=== PATIENT | male | born 1950 | race Caucasian/White ===

== ENCOUNTER 2021-08-13 16:11 | Outpatient (CLI) | payer MEDICARE | END 2021-08-13 16:12 | disposition home or self-care (01) | LOC: CSHWCC 16:11 | PROVIDERS: ATTEND Nurse Practitioner Family | DX: E11.621 Type 2 diabetes mellitus with foot ulcer (principal); L97.416 Non-pressure chronic ulcer of right heel and midfoot with bone involvement without evidence of necrosis | CPT/HCPCS: 82962; 97139; G0277; 36416 ==

== ENCOUNTER 2021-08-14 10:44 | Outpatient (CLI) | payer MEDICARE | END 2021-08-14 10:45 | disposition home or self-care (01) | LOC: CSHWCC 10:44 | PROVIDERS: ATTEND Nurse Practitioner Family | DX: E11.621 Type 2 diabetes mellitus with foot ulcer (principal); L97.416 Non-pressure chronic ulcer of right heel and midfoot with bone involvement without evidence of necrosis | CPT/HCPCS: 36416; G0277 ==

== ENCOUNTER 2021-08-17 15:40 | Outpatient (CLI) | payer MEDICARE | END 2021-08-17 15:41 | disposition home or self-care (01) | LOC: CSHWCC 15:40 | PROVIDERS: ATTEND Nurse Practitioner Family | DX: E11.621 Type 2 diabetes mellitus with foot ulcer (principal); L97.416 Non-pressure chronic ulcer of right heel and midfoot with bone involvement without evidence of necrosis | CPT/HCPCS: 36416; G0277 ==

== ENCOUNTER 2021-08-18 13:42 | Outpatient (CLI) | payer MEDICARE | END 2021-08-18 13:43 | disposition home or self-care (01) | LOC: CSHWCC 13:42 | PROVIDERS: ATTEND Nurse Practitioner Family | DX: E11.621 Type 2 diabetes mellitus with foot ulcer (principal); L97.416 Non-pressure chronic ulcer of right heel and midfoot with bone involvement without evidence of necrosis | CPT/HCPCS: 36416; G0277 ==

== ENCOUNTER 2021-08-19 12:48 | Outpatient (CLI) | payer MEDICARE | END 2021-08-19 12:49 | disposition home or self-care (01) | LOC: CSHWCC 12:48 | PROVIDERS: ATTEND Nurse Practitioner Family | DX: E11.621 Type 2 diabetes mellitus with foot ulcer (principal); L97.416 Non-pressure chronic ulcer of right heel and midfoot with bone involvement without evidence of necrosis | CPT/HCPCS: 82962; 97139; G0277; 36416 ==

== ENCOUNTER 2021-08-20 13:06 | Outpatient (CLI) | payer MEDICARE | END 2021-08-20 13:07 | disposition home or self-care (01) | LOC: CSHWCC 13:06 | PROVIDERS: ATTEND Nurse Practitioner Family | DX: E11.621 Type 2 diabetes mellitus with foot ulcer (principal); L97.416 Non-pressure chronic ulcer of right heel and midfoot with bone involvement without evidence of necrosis | CPT/HCPCS: 11042; 36416; 87070; 87205; 97605; G0277 ==

== ENCOUNTER 2021-08-21 12:37 | Outpatient (CLI) | payer MEDICARE | END 2021-08-21 12:38 | disposition home or self-care (01) | LOC: CSHWCC 12:37 | PROVIDERS: ATTEND Nurse Practitioner Family | DX: E11.621 Type 2 diabetes mellitus with foot ulcer (principal); L97.416 Non-pressure chronic ulcer of right heel and midfoot with bone involvement without evidence of necrosis | CPT/HCPCS: 36416; G0277 ==

== ENCOUNTER 2021-08-24 13:42 | Outpatient (CLI) | payer MEDICARE | END 2021-08-24 13:43 | disposition home or self-care (01) | LOC: CSHWCC 13:42 | PROVIDERS: ATTEND Nurse Practitioner Family | DX: E11.621 Type 2 diabetes mellitus with foot ulcer (principal); L97.416 Non-pressure chronic ulcer of right heel and midfoot with bone involvement without evidence of necrosis | CPT/HCPCS: 36416; 97605; G0277 ==

== ENCOUNTER 2021-08-25 12:00 | Outpatient (CLI) | payer MEDICARE | END 2021-08-25 12:01 | disposition home or self-care (01) | LOC: CSHWCC 12:00 | PROVIDERS: ATTEND Nurse Practitioner Family | DX: E11.621 Type 2 diabetes mellitus with foot ulcer (principal); L97.416 Non-pressure chronic ulcer of right heel and midfoot with bone involvement without evidence of necrosis | CPT/HCPCS: 97139; G0277; 36416 ==

== ENCOUNTER 2021-08-26 15:17 | Outpatient (CLI) | payer MEDICARE | END 2021-08-26 15:18 | disposition home or self-care (01) | LOC: CSHWCC 15:17 | PROVIDERS: ATTEND Nurse Practitioner Family | DX: E11.621 Type 2 diabetes mellitus with foot ulcer (principal); L97.416 Non-pressure chronic ulcer of right heel and midfoot with bone involvement without evidence of necrosis | CPT/HCPCS: 82962; 97139; G0277; 36416 ==

== ENCOUNTER 2021-08-27 13:02 | Outpatient (CLI) | payer MEDICARE | END 2021-08-27 13:03 | disposition home or self-care (01) | LOC: CSHWCC 13:02 | PROVIDERS: ATTEND Nurse Practitioner Family | DX: E11.621 Type 2 diabetes mellitus with foot ulcer (principal); L97.416 Non-pressure chronic ulcer of right heel and midfoot with bone involvement without evidence of necrosis | CPT/HCPCS: 36416 ==

== ENCOUNTER 2021-08-28 10:06 | Outpatient (CLI) | payer MEDICARE | END 2021-08-28 10:07 | disposition home or self-care (01) | LOC: CSHWCC 10:06 | PROVIDERS: ATTEND Nurse Practitioner Family | DX: E11.621 Type 2 diabetes mellitus with foot ulcer (principal); L97.416 Non-pressure chronic ulcer of right heel and midfoot with bone involvement without evidence of necrosis | CPT/HCPCS: 36416; G0277 ==

== ENCOUNTER 2021-08-31 12:14 | Outpatient (CLI) | payer MEDICARE | END 2021-08-31 12:15 | disposition home or self-care (01) | LOC: CSHWCC 12:14 | PROVIDERS: ATTEND Nurse Practitioner Family | DX: E11.621 Type 2 diabetes mellitus with foot ulcer (principal); L97.416 Non-pressure chronic ulcer of right heel and midfoot with bone involvement without evidence of necrosis | CPT/HCPCS: 11042; 82962; 97139; G0277; 36416 ==

== ENCOUNTER 2021-09-02 13:59 | Outpatient (CLI) | payer MEDICARE | END 2021-09-02 14:00 | disposition home or self-care (01) | LOC: CSHWCC 13:59 | PROVIDERS: ATTEND Nurse Practitioner Family | DX: E11.621 Type 2 diabetes mellitus with foot ulcer (principal); L97.416 Non-pressure chronic ulcer of right heel and midfoot with bone involvement without evidence of necrosis | CPT/HCPCS: 36416; G0277 ==

== ENCOUNTER 2021-09-04 11:17 | Outpatient (CLI) | payer MEDICARE | END 2021-09-04 11:18 | disposition home or self-care (01) | LOC: CSHWCC 11:17 | PROVIDERS: ATTEND Nurse Practitioner Family | DX: E11.621 Type 2 diabetes mellitus with foot ulcer (principal); L97.416 Non-pressure chronic ulcer of right heel and midfoot with bone involvement without evidence of necrosis; I10 Essential (primary) hypertension | CPT/HCPCS: 36416 ==

== ENCOUNTER 2021-09-07 09:23 | Outpatient (CLI) | payer MEDICARE | END 2021-09-07 09:24 | disposition home or self-care (01) | LOC: CSHWCC 09:23 | PROVIDERS: ATTEND Nurse Practitioner Family | DX: E11.621 Type 2 diabetes mellitus with foot ulcer (principal); L97.416 Non-pressure chronic ulcer of right heel and midfoot with bone involvement without evidence of necrosis | CPT/HCPCS: 36416; 97605; G0277 ==

== ENCOUNTER 2021-09-08 10:10 | Outpatient (CLI) | payer MEDICARE | END 2021-09-08 10:11 | disposition home or self-care (01) | LOC: CSHWCC 10:10 | PROVIDERS: ATTEND Nurse Practitioner Family | DX: E11.621 Type 2 diabetes mellitus with foot ulcer (principal); L97.416 Non-pressure chronic ulcer of right heel and midfoot with bone involvement without evidence of necrosis | CPT/HCPCS: 97139; G0277; 36416 ==

== ENCOUNTER 2021-09-09 15:14 | Outpatient (CLI) | payer MEDICARE | END 2021-09-09 15:15 | disposition home or self-care (01) | LOC: CSHWCC 15:14 | PROVIDERS: ATTEND Nurse Practitioner Family | DX: E11.621 Type 2 diabetes mellitus with foot ulcer (principal); L97.416 Non-pressure chronic ulcer of right heel and midfoot with bone involvement without evidence of necrosis | CPT/HCPCS: 36416 ==

== ENCOUNTER 2021-09-10 15:20 | Outpatient (CLI) | payer MEDICARE | END 2021-09-10 15:21 | disposition home or self-care (01) | LOC: CSHWCC 15:20 | PROVIDERS: ATTEND Nurse Practitioner Family | DX: E11.621 Type 2 diabetes mellitus with foot ulcer (principal); L97.416 Non-pressure chronic ulcer of right heel and midfoot with bone involvement without evidence of necrosis | CPT/HCPCS: 36416 ==

== ENCOUNTER 2021-09-11 10:56 | Outpatient (CLI) | payer MEDICARE | END 2021-09-11 10:57 | disposition home or self-care (01) | LOC: CSHWCC 10:56 | PROVIDERS: ATTEND Nurse Practitioner Family | DX: E11.621 Type 2 diabetes mellitus with foot ulcer (principal); L97.416 Non-pressure chronic ulcer of right heel and midfoot with bone involvement without evidence of necrosis | CPT/HCPCS: 36416; G0277 ==

== ENCOUNTER 2021-09-14 08:21 | Outpatient (CLI) | payer MEDICARE | END 2021-09-14 08:22 | disposition home or self-care (01) | LOC: CSHWCC 08:21 | PROVIDERS: ATTEND Nurse Practitioner Family | DX: E11.621 Type 2 diabetes mellitus with foot ulcer (principal); L97.416 Non-pressure chronic ulcer of right heel and midfoot with bone involvement without evidence of necrosis; I10 Essential (primary) hypertension | CPT/HCPCS: 36416; 97605; G0277 ==

== ENCOUNTER 2021-09-17 08:52 | Outpatient (CLI) | payer MEDICARE | END 2021-09-17 08:53 | disposition home or self-care (01) | LOC: CSHWCC 08:52 | PROVIDERS: ATTEND Nurse Practitioner Family | DX: E11.621 Type 2 diabetes mellitus with foot ulcer (principal); L97.416 Non-pressure chronic ulcer of right heel and midfoot with bone involvement without evidence of necrosis | CPT/HCPCS: 15271; 97139; 97605; Q4133 ==

== ENCOUNTER 2021-09-22 08:12 | Outpatient (CLI) | payer MEDICARE | END 2021-09-22 08:13 | disposition home or self-care (01) | LOC: CSHWCC 08:12 | PROVIDERS: ATTEND Nurse Practitioner Family | DX: E11.621 Type 2 diabetes mellitus with foot ulcer (principal); L97.416 Non-pressure chronic ulcer of right heel and midfoot with bone involvement without evidence of necrosis | CPT/HCPCS: 97605 ==

== ENCOUNTER 2021-09-25 11:17 | Outpatient (CLI) | payer MEDICARE | END 2021-09-25 11:18 | disposition home or self-care (01) | LOC: CSHWCC 11:17 | PROVIDERS: ATTEND Nurse Practitioner Family | DX: E11.621 Type 2 diabetes mellitus with foot ulcer (principal); L97.416 Non-pressure chronic ulcer of right heel and midfoot with bone involvement without evidence of necrosis | CPT/HCPCS: 15275; 97139; G0463; Q4133; 99212 ==

== ENCOUNTER 2021-09-28 09:38 | Outpatient (CLI) | payer MEDICARE | END 2021-09-28 09:39 | disposition home or self-care (01) | LOC: CSHWCC 09:38 | PROVIDERS: ATTEND Nurse Practitioner Family | DX: E11.621 Type 2 diabetes mellitus with foot ulcer (principal); L97.416 Non-pressure chronic ulcer of right heel and midfoot with bone involvement without evidence of necrosis | CPT/HCPCS: 36416; G0277 ==

== ENCOUNTER 2021-09-29 15:10 | Outpatient (CLI) | payer MEDICARE | END 2021-09-29 15:11 | disposition home or self-care (01) | LOC: CSHWCC 15:10 | PROVIDERS: ATTEND Nurse Practitioner Family | DX: E11.621 Type 2 diabetes mellitus with foot ulcer (principal); L97.416 Non-pressure chronic ulcer of right heel and midfoot with bone involvement without evidence of necrosis | CPT/HCPCS: 82962; 97139; G0277; G0463; 36416; 99212 ==

== ENCOUNTER 2021-09-30 13:01 | Outpatient (CLI) | payer MEDICARE | END 2021-09-30 13:02 | disposition home or self-care (01) | LOC: CSHWCC 13:01 | PROVIDERS: ATTEND Nurse Practitioner Family | DX: E11.621 Type 2 diabetes mellitus with foot ulcer (principal); L97.416 Non-pressure chronic ulcer of right heel and midfoot with bone involvement without evidence of necrosis | CPT/HCPCS: 82962; 97139; G0277; 36416 ==

== ENCOUNTER 2021-10-01 14:14 | Outpatient (CLI) | payer MEDICARE | END 2021-10-01 14:15 | disposition home or self-care (01) | LOC: CSHWCC 14:14 | PROVIDERS: ATTEND Nurse Practitioner Family | DX: E11.621 Type 2 diabetes mellitus with foot ulcer (principal); L97.416 Non-pressure chronic ulcer of right heel and midfoot with bone involvement without evidence of necrosis | CPT/HCPCS: 82962; 97139; G0277; 36416 ==

== ENCOUNTER 2021-10-02 10:47 | Outpatient (CLI) | payer MEDICARE | END 2021-10-02 10:48 | disposition home or self-care (01) | LOC: CSHWCC 10:47 | PROVIDERS: ATTEND Nurse Practitioner Family | DX: E11.621 Type 2 diabetes mellitus with foot ulcer (principal); L97.416 Non-pressure chronic ulcer of right heel and midfoot with bone involvement without evidence of necrosis | CPT/HCPCS: 15275; 82962; 97139; G0277; Q4133; 36416 ==

== ENCOUNTER 2021-10-05 08:07 | Outpatient (CLI) | payer MEDICARE | END 2021-10-05 08:08 | disposition home or self-care (01) | LOC: CSHWCC 08:07 | PROVIDERS: ATTEND Nurse Practitioner Family | DX: E11.621 Type 2 diabetes mellitus with foot ulcer (principal); L97.416 Non-pressure chronic ulcer of right heel and midfoot with bone involvement without evidence of necrosis | CPT/HCPCS: 82962; 97139; G0277; 36416 ==

== ENCOUNTER 2021-10-06 11:41 | Outpatient (CLI) | payer MEDICARE | END 2021-10-06 11:42 | disposition home or self-care (01) | LOC: CSHWCC 11:41 | PROVIDERS: ATTEND Nurse Practitioner Family | DX: E11.621 Type 2 diabetes mellitus with foot ulcer (principal); L97.416 Non-pressure chronic ulcer of right heel and midfoot with bone involvement without evidence of necrosis | CPT/HCPCS: 97139; G0463; 99213 ==

== ENCOUNTER 2021-10-07 13:59 | Outpatient (CLI) | payer MEDICARE | END 2021-10-07 14:00 | disposition home or self-care (01) | LOC: CSHWCC 13:59 | PROVIDERS: ATTEND Nurse Practitioner Family | DX: E11.621 Type 2 diabetes mellitus with foot ulcer (principal); L97.416 Non-pressure chronic ulcer of right heel and midfoot with bone involvement without evidence of necrosis | CPT/HCPCS: 36416; G0277 ==

== ENCOUNTER 2021-10-08 08:23 | Outpatient (CLI) | payer MEDICARE | END 2021-10-08 08:24 | disposition home or self-care (01) | LOC: CSHWCC 08:23 | PROVIDERS: ATTEND Nurse Practitioner Family | DX: E11.621 Type 2 diabetes mellitus with foot ulcer (principal); L97.416 Non-pressure chronic ulcer of right heel and midfoot with bone involvement without evidence of necrosis | CPT/HCPCS: 82962; 97139; G0277; 36416 ==

== ENCOUNTER 2021-10-09 10:21 | Outpatient (CLI) | payer MEDICARE | END 2021-10-09 10:22 | disposition home or self-care (01) | LOC: CSHWCC 10:21 | PROVIDERS: ATTEND Nurse Practitioner Family | DX: E11.621 Type 2 diabetes mellitus with foot ulcer (principal); L97.416 Non-pressure chronic ulcer of right heel and midfoot with bone involvement without evidence of necrosis; M86.671 Other chronic osteomyelitis, right ankle and foot | CPT/HCPCS: 82962; 97139; G0277; G0463; 36416; 99213 ==

== ENCOUNTER 2021-10-12 10:58 | Outpatient (CLI) | payer MEDICARE | END 2021-10-12 10:59 | disposition home or self-care (01) | LOC: CSHWCC 10:58 | PROVIDERS: ATTEND Nurse Practitioner Family | DX: E11.621 Type 2 diabetes mellitus with foot ulcer (principal); M86.671 Other chronic osteomyelitis, right ankle and foot; L97.416 Non-pressure chronic ulcer of right heel and midfoot with bone involvement without evidence of necrosis | CPT/HCPCS: 36416; G0277 ==

== ENCOUNTER 2021-10-13 10:36 | Outpatient (CLI) | payer MEDICARE | END 2021-10-13 10:37 | disposition home or self-care (01) | LOC: CSHWCC 10:36 | PROVIDERS: ATTEND Nurse Practitioner Family | DX: E11.621 Type 2 diabetes mellitus with foot ulcer (principal); L97.416 Non-pressure chronic ulcer of right heel and midfoot with bone involvement without evidence of necrosis; M86.671 Other chronic osteomyelitis, right ankle and foot; I10 Essential (primary) hypertension | CPT/HCPCS: 82962; 97139; 97605; G0277; 36416 ==

== ENCOUNTER 2021-10-16 09:52 | Outpatient (CLI) | payer MEDICARE | END 2021-10-16 09:53 | disposition home or self-care (01) | LOC: CSHWCC 09:52 | PROVIDERS: ATTEND Nurse Practitioner Family | DX: E11.621 Type 2 diabetes mellitus with foot ulcer (principal); L97.416 Non-pressure chronic ulcer of right heel and midfoot with bone involvement without evidence of necrosis; M86.671 Other chronic osteomyelitis, right ankle and foot ==

== ENCOUNTER 2021-10-21 11:56 | Outpatient (CLI) | payer MEDICARE | END 2021-10-21 11:57 | disposition home or self-care (01) | LOC: CSHWCC 11:56 | PROVIDERS: ATTEND Nurse Practitioner Family | DX: E11.621 Type 2 diabetes mellitus with foot ulcer (principal); L97.416 Non-pressure chronic ulcer of right heel and midfoot with bone involvement without evidence of necrosis | CPT/HCPCS: 97605 ==

== ENCOUNTER 2021-10-23 10:59 | Outpatient (CLI) | payer MEDICARE | END 2021-10-23 11:00 | disposition home or self-care (01) | LOC: CSHWCC 10:59 | PROVIDERS: ATTEND Nurse Practitioner Family | DX: E11.621 Type 2 diabetes mellitus with foot ulcer (principal); L97.416 Non-pressure chronic ulcer of right heel and midfoot with bone involvement without evidence of necrosis | CPT/HCPCS: 29581; 97605 ==

== ENCOUNTER 2021-10-27 09:50 | Outpatient (CLI) | payer MEDICARE | END 2021-10-27 09:51 | disposition home or self-care (01) | LOC: CSHWCC 09:50 | PROVIDERS: ATTEND Nurse Practitioner Family | DX: E11.621 Type 2 diabetes mellitus with foot ulcer (principal); L97.416 Non-pressure chronic ulcer of right heel and midfoot with bone involvement without evidence of necrosis; R60.0 Localized edema ==

== ENCOUNTER → 2021-10-30 | Outpatient (CLI) | payer MEDICARE | LOC: CSHWCC 16:26 | PROVIDERS: ATTEND Nurse Practitioner Family | DX: E11.621 Type 2 diabetes mellitus with foot ulcer (principal); L97.416 Non-pressure chronic ulcer of right heel and midfoot with bone involvement without evidence of necrosis; R60.0 Localized edema | CPT/HCPCS: 29581; 97605 ==

== ENCOUNTER 2021-11-03 15:18 | Outpatient (CLI) | payer MEDICARE | END 2021-11-03 15:19 | disposition home or self-care (01) | LOC: CSHWCC 15:18 | PROVIDERS: ATTEND Nurse Practitioner Family | DX: E11.621 Type 2 diabetes mellitus with foot ulcer (principal); L97.416 Non-pressure chronic ulcer of right heel and midfoot with bone involvement without evidence of necrosis; R60.0 Localized edema ==

== ENCOUNTER 2021-11-06 11:57 | Outpatient (CLI) | payer MEDICARE | END 2021-11-06 11:58 | disposition home or self-care (01) | LOC: CSHWCC 11:57 | PROVIDERS: ATTEND Nurse Practitioner Family | DX: E11.621 Type 2 diabetes mellitus with foot ulcer (principal); L97.416 Non-pressure chronic ulcer of right heel and midfoot with bone involvement without evidence of necrosis; R60.0 Localized edema ==

== ENCOUNTER 2021-11-10 14:27 | Outpatient (CLI) | payer MEDICARE | END 2021-11-10 14:28 | disposition home or self-care (01) | LOC: CSHWCC 14:27 | PROVIDERS: ATTEND Nurse Practitioner Family | DX: E11.621 Type 2 diabetes mellitus with foot ulcer (principal); L97.416 Non-pressure chronic ulcer of right heel and midfoot with bone involvement without evidence of necrosis; R60.0 Localized edema ==

== ENCOUNTER 2021-11-13 11:26 | Outpatient (CLI) | payer MEDICARE | END 2021-11-13 11:27 | disposition home or self-care (01) | LOC: CSHWCC 11:26 | PROVIDERS: ATTEND Nurse Practitioner Family | DX: E11.621 Type 2 diabetes mellitus with foot ulcer (principal); L97.416 Non-pressure chronic ulcer of right heel and midfoot with bone involvement without evidence of necrosis; R60.0 Localized edema | CPT/HCPCS: 29581; 97605 ==

== ENCOUNTER 2021-11-17 13:05 | Outpatient (CLI) | payer MEDICARE | END 2021-11-17 13:06 | disposition home or self-care (01) | LOC: CSHWCC 13:05 | PROVIDERS: ATTEND Nurse Practitioner Family | DX: E11.621 Type 2 diabetes mellitus with foot ulcer (principal); L97.416 Non-pressure chronic ulcer of right heel and midfoot with bone involvement without evidence of necrosis; R60.0 Localized edema ==

== ENCOUNTER 2021-11-20 10:19 | Outpatient (CLI) | payer MEDICARE | END 2021-11-20 10:20 | disposition home or self-care (01) | LOC: CSHWCC 10:19 | PROVIDERS: ATTEND Nurse Practitioner Family | DX: E11.621 Type 2 diabetes mellitus with foot ulcer (principal); L97.416 Non-pressure chronic ulcer of right heel and midfoot with bone involvement without evidence of necrosis; R60.0 Localized edema | CPT/HCPCS: 29581; 97605 ==

== ENCOUNTER 2021-11-24 12:55 | Outpatient (CLI) | payer MEDICARE | END 2021-11-24 12:56 | disposition home or self-care (01) | LOC: CSHWCC 12:55 | PROVIDERS: ATTEND Nurse Practitioner Family | DX: E11.621 Type 2 diabetes mellitus with foot ulcer (principal); L97.416 Non-pressure chronic ulcer of right heel and midfoot with bone involvement without evidence of necrosis; R60.0 Localized edema ==

== ENCOUNTER 2021-11-27 09:43 | Outpatient (CLI) | payer MEDICARE | END 2021-11-27 09:44 | disposition home or self-care (01) | LOC: CSHWCC 09:43 | PROVIDERS: ATTEND Nurse Practitioner Family | DX: L89.313 Pressure ulcer of right buttock, stage 3 (principal); E11.621 Type 2 diabetes mellitus with foot ulcer; L97.416 Non-pressure chronic ulcer of right heel and midfoot with bone involvement without evidence of necrosis; R60.0 Localized edema ==

== ENCOUNTER 2021-12-01 15:03 | Outpatient (CLI) | payer MEDICARE | END 2021-12-01 15:04 | disposition home or self-care (01) | LOC: CSHWCC 15:03 | PROVIDERS: ATTEND Nurse Practitioner Family | DX: L89.313 Pressure ulcer of right buttock, stage 3 (principal); E11.621 Type 2 diabetes mellitus with foot ulcer; L97.416 Non-pressure chronic ulcer of right heel and midfoot with bone involvement without evidence of necrosis; R60.0 Localized edema | CPT/HCPCS: 29581 ==

== ENCOUNTER 2021-12-04 10:47 | Outpatient (CLI) | payer MEDICARE | END 2021-12-04 10:48 | disposition home or self-care (01) | LOC: CSHWCC 10:47 | PROVIDERS: ATTEND Nurse Practitioner Family | DX: E11.621 Type 2 diabetes mellitus with foot ulcer (principal); L97.416 Non-pressure chronic ulcer of right heel and midfoot with bone involvement without evidence of necrosis; R60.0 Localized edema | CPT/HCPCS: 29581 ==

== ENCOUNTER 2021-12-08 14:26 | Outpatient (CLI) | payer MEDICARE | END 2021-12-08 14:27 | disposition home or self-care (01) | LOC: CSHWCC 14:26 | PROVIDERS: ATTEND Nurse Practitioner Family | DX: E11.621 Type 2 diabetes mellitus with foot ulcer (principal); L97.416 Non-pressure chronic ulcer of right heel and midfoot with bone involvement without evidence of necrosis; R60.0 Localized edema ==

== ENCOUNTER 2021-12-19 12:34 | Outpatient (CLI) | payer MEDICARE | END 2021-12-19 12:35 | disposition home or self-care (01) | LOC: CSHRAD 12:34 | PROVIDERS: ATTEND Preventive Medicine Undersea and Hyperbaric Medicine | DX: M86.671 Other chronic osteomyelitis, right ankle and foot (principal); M85.871 Other specified disorders of bone density and structure, right ankle and foot; M79.89 Other specified soft tissue disorders ==

== ENCOUNTER 2021-12-21 11:57 | Outpatient (CLI) | payer MEDICARE | END 2021-12-21 11:58 | disposition home or self-care (01) | LOC: CSHWCC 11:57 | PROVIDERS: ATTEND Preventive Medicine Undersea and Hyperbaric Medicine | DX: E11.621 Type 2 diabetes mellitus with foot ulcer (principal); L97.416 Non-pressure chronic ulcer of right heel and midfoot with bone involvement without evidence of necrosis | CPT/HCPCS: 29581 ==

== ENCOUNTER 2021-12-25 08:04 | Outpatient (CLI) | payer MEDICARE | END 2021-12-25 08:05 | disposition home or self-care (01) | LOC: CSHWCC 08:04 | PROVIDERS: ATTEND Nurse Practitioner Family | DX: E11.621 Type 2 diabetes mellitus with foot ulcer (principal); L97.416 Non-pressure chronic ulcer of right heel and midfoot with bone involvement without evidence of necrosis; R60.0 Localized edema | CPT/HCPCS: 29581; 97139; G0463; 99212 ==

== ENCOUNTER 2021-12-29 12:51 | Outpatient (CLI) | payer MEDICARE | END 2021-12-29 12:52 | disposition home or self-care (01) | LOC: CSHWCC 12:51 | PROVIDERS: ATTEND Preventive Medicine Undersea and Hyperbaric Medicine | DX: E11.621 Type 2 diabetes mellitus with foot ulcer (principal); L97.416 Non-pressure chronic ulcer of right heel and midfoot with bone involvement without evidence of necrosis; R60.0 Localized edema | CPT/HCPCS: 29445; 29581; 99212; G0463 ==

== ENCOUNTER 2021-12-30 08:29 | Outpatient (CLI) | payer MEDICARE | END 2021-12-30 08:30 | disposition home or self-care (01) | LOC: CSHWCC 08:29 | PROVIDERS: ATTEND Preventive Medicine Undersea and Hyperbaric Medicine | DX: E11.621 Type 2 diabetes mellitus with foot ulcer (principal); L97.416 Non-pressure chronic ulcer of right heel and midfoot with bone involvement without evidence of necrosis; R60.0 Localized edema | CPT/HCPCS: 82962; 97139; G0277; 36416 ==

== ENCOUNTER 2021-12-31 11:05 | Outpatient (CLI) | payer MEDICARE | END 2021-12-31 11:06 | disposition home or self-care (01) | LOC: CSHWCC 11:05 | PROVIDERS: ATTEND Preventive Medicine Undersea and Hyperbaric Medicine | DX: M86.671 Other chronic osteomyelitis, right ankle and foot (principal) | CPT/HCPCS: 82962; 97139; G0277; 36416 ==

== ENCOUNTER 2022-01-01 08:12 | Outpatient (CLI) | payer MEDICARE | END 2022-01-01 08:13 | disposition home or self-care (01) | LOC: CSHWCC 08:12 | PROVIDERS: ATTEND Preventive Medicine Undersea and Hyperbaric Medicine | DX: E11.621 Type 2 diabetes mellitus with foot ulcer (principal); L97.416 Non-pressure chronic ulcer of right heel and midfoot with bone involvement without evidence of necrosis; R60.0 Localized edema | CPT/HCPCS: 36416; G0277 ==

== ENCOUNTER 2022-01-05 13:48 | Outpatient (CLI) | payer MEDICARE | END 2022-01-05 13:49 | disposition home or self-care (01) | LOC: CSHWCC 13:48 | PROVIDERS: ATTEND Preventive Medicine Undersea and Hyperbaric Medicine | DX: E11.621 Type 2 diabetes mellitus with foot ulcer (principal); L97.416 Non-pressure chronic ulcer of right heel and midfoot with bone involvement without evidence of necrosis; R60.0 Localized edema | CPT/HCPCS: 36416; G0277 ==

== ENCOUNTER 2022-01-06 08:11 | Outpatient (CLI) | payer MEDICARE | END 2022-01-06 08:12 | disposition home or self-care (01) | LOC: CSHWCC 08:11 | PROVIDERS: ATTEND Nurse Practitioner Family | DX: M86.671 Other chronic osteomyelitis, right ankle and foot (principal) | CPT/HCPCS: 97139; G0277; 36416 ==

== ENCOUNTER 2022-01-07 08:08 | Outpatient (CLI) | payer MEDICARE | END 2022-01-07 08:09 | disposition home or self-care (01) | LOC: CSHWCC 08:08 | PROVIDERS: ATTEND Preventive Medicine Undersea and Hyperbaric Medicine | DX: M86.671 Other chronic osteomyelitis, right ankle and foot (principal) | CPT/HCPCS: 36416 ==

== ENCOUNTER 2022-01-08 08:07 | Outpatient (CLI) | payer MEDICARE | END 2022-01-08 08:08 | disposition home or self-care (01) | LOC: CSHWCC 08:07 | PROVIDERS: ATTEND Nurse Practitioner Family | DX: M86.671 Other chronic osteomyelitis, right ankle and foot (principal) | CPT/HCPCS: 36416; G0277 ==

== ENCOUNTER 2022-01-12 08:26 | Outpatient (CLI) | payer MEDICARE | END 2022-01-12 08:27 | disposition home or self-care (01) | LOC: CSHWCC 08:26 | PROVIDERS: ATTEND Preventive Medicine Undersea and Hyperbaric Medicine | DX: M86.671 Other chronic osteomyelitis, right ankle and foot (principal) | CPT/HCPCS: 36416; G0277 ==

== ENCOUNTER 2022-01-13 08:07 | Outpatient (CLI) | payer MEDICARE | END 2022-01-13 08:08 | disposition home or self-care (01) | LOC: CSHWCC 08:07 | PROVIDERS: ATTEND Preventive Medicine Undersea and Hyperbaric Medicine | DX: E11.621 Type 2 diabetes mellitus with foot ulcer (principal); L97.416 Non-pressure chronic ulcer of right heel and midfoot with bone involvement without evidence of necrosis; M86.671 Other chronic osteomyelitis, right ankle and foot | CPT/HCPCS: 36416; G0277 ==

== ENCOUNTER 2022-01-14 08:08 | Outpatient (CLI) | payer MEDICARE | END 2022-01-14 08:09 | disposition home or self-care (01) | LOC: CSHWCC 08:08 | PROVIDERS: ATTEND Preventive Medicine Undersea and Hyperbaric Medicine | DX: E11.621 Type 2 diabetes mellitus with foot ulcer (principal); L97.416 Non-pressure chronic ulcer of right heel and midfoot with bone involvement without evidence of necrosis; R60.0 Localized edema | CPT/HCPCS: 36416 ==

== ENCOUNTER 2022-01-15 11:27 | Outpatient (CLI) | payer MEDICARE | END 2022-01-15 11:28 | disposition home or self-care (01) | LOC: CSHWCC 11:27 | PROVIDERS: ATTEND Preventive Medicine Undersea and Hyperbaric Medicine | DX: E11.621 Type 2 diabetes mellitus with foot ulcer (principal); L97.416 Non-pressure chronic ulcer of right heel and midfoot with bone involvement without evidence of necrosis | CPT/HCPCS: 36416 ==

== ENCOUNTER 2022-01-18 08:21 | Outpatient (CLI) | payer MEDICARE | END 2022-01-18 08:22 | disposition home or self-care (01) | LOC: CSHWCC 08:21 | PROVIDERS: ATTEND Preventive Medicine Undersea and Hyperbaric Medicine | DX: E11.621 Type 2 diabetes mellitus with foot ulcer (principal); L97.416 Non-pressure chronic ulcer of right heel and midfoot with bone involvement without evidence of necrosis | CPT/HCPCS: 36416; G0277 ==

== ENCOUNTER 2022-01-19 08:25 | Outpatient (CLI) | payer MEDICARE | END 2022-01-19 08:26 | disposition home or self-care (01) | LOC: CSHWCC 08:25 | PROVIDERS: ATTEND Preventive Medicine Undersea and Hyperbaric Medicine | DX: E11.621 Type 2 diabetes mellitus with foot ulcer (principal); L97.416 Non-pressure chronic ulcer of right heel and midfoot with bone involvement without evidence of necrosis; R60.0 Localized edema | CPT/HCPCS: 36416; G0277 ==

== ENCOUNTER 2022-01-20 08:18 | Outpatient (CLI) | payer MEDICARE | END 2022-01-20 08:19 | disposition home or self-care (01) | LOC: CSHWCC 08:18 | PROVIDERS: ATTEND Preventive Medicine Undersea and Hyperbaric Medicine | DX: E11.621 Type 2 diabetes mellitus with foot ulcer (principal); L97.416 Non-pressure chronic ulcer of right heel and midfoot with bone involvement without evidence of necrosis; R60.0 Localized edema | CPT/HCPCS: 36416; G0277 ==

== ENCOUNTER 2022-01-26 08:25 | Outpatient (CLI) | payer MEDICARE | END 2022-01-26 08:26 | disposition home or self-care (01) | LOC: CSHWCC 08:25 | PROVIDERS: ATTEND Preventive Medicine Undersea and Hyperbaric Medicine | DX: E11.621 Type 2 diabetes mellitus with foot ulcer (principal); L97.416 Non-pressure chronic ulcer of right heel and midfoot with bone involvement without evidence of necrosis; M86.671 Other chronic osteomyelitis, right ankle and foot; I10 Essential (primary) hypertension | CPT/HCPCS: 82962; 97139; G0277; 36416 ==

== ENCOUNTER 2022-01-27 08:13 | Outpatient (CLI) | payer MEDICARE | END 2022-01-27 08:14 | disposition home or self-care (01) | LOC: CSHWCC 08:13 | PROVIDERS: ATTEND Preventive Medicine Undersea and Hyperbaric Medicine | DX: E11.621 Type 2 diabetes mellitus with foot ulcer (principal); L97.416 Non-pressure chronic ulcer of right heel and midfoot with bone involvement without evidence of necrosis; M86.671 Other chronic osteomyelitis, right ankle and foot; I10 Essential (primary) hypertension | CPT/HCPCS: 82962; 97139; G0277; 36416 ==

== ENCOUNTER 2022-01-27 16:12 | Outpatient (CLI) | payer MEDICARE | END 2022-01-27 16:13 | disposition home or self-care (01) | LOC: CSHWCC 16:12 | PROVIDERS: ATTEND Preventive Medicine Undersea and Hyperbaric Medicine | DX: E11.621 Type 2 diabetes mellitus with foot ulcer (principal); L97.416 Non-pressure chronic ulcer of right heel and midfoot with bone involvement without evidence of necrosis ==

== ENCOUNTER 2022-01-29 08:12 | Outpatient (CLI) | payer MEDICARE | END 2022-01-29 08:13 | disposition home or self-care (01) | LOC: CSHWCC 08:12 | PROVIDERS: ATTEND Preventive Medicine Undersea and Hyperbaric Medicine | DX: E11.621 Type 2 diabetes mellitus with foot ulcer (principal); L97.416 Non-pressure chronic ulcer of right heel and midfoot with bone involvement without evidence of necrosis; M86.671 Other chronic osteomyelitis, right ankle and foot; I10 Essential (primary) hypertension | CPT/HCPCS: 97139; G0277; G0463; 99213 ==

== ENCOUNTER 2022-02-01 08:06 | Outpatient (CLI) | payer MEDICARE | END 2022-02-01 08:07 | disposition home or self-care (01) | LOC: CSHWCC 08:06 | PROVIDERS: ATTEND Preventive Medicine Undersea and Hyperbaric Medicine | DX: E11.621 Type 2 diabetes mellitus with foot ulcer (principal); L97.416 Non-pressure chronic ulcer of right heel and midfoot with bone involvement without evidence of necrosis; E11.69 Type 2 diabetes mellitus with other specified complication; M86.671 Other chronic osteomyelitis, right ankle and foot; R60.0 Localized edema; I10 Essential (primary) hypertension | CPT/HCPCS: 82962; 97139; G0277; 36416 ==

== ENCOUNTER 2022-02-02 08:12 | Outpatient (CLI) | payer MEDICARE | END 2022-02-02 08:13 | disposition home or self-care (01) | LOC: CSHWCC 08:12 | PROVIDERS: ATTEND Preventive Medicine Undersea and Hyperbaric Medicine | DX: E11.621 Type 2 diabetes mellitus with foot ulcer (principal); L97.416 Non-pressure chronic ulcer of right heel and midfoot with bone involvement without evidence of necrosis | CPT/HCPCS: 82962; 97139; G0277; 36416 ==

== ENCOUNTER 2022-02-03 08:15 | Outpatient (CLI) | payer MEDICARE | END 2022-02-03 08:16 | disposition home or self-care (01) | LOC: CSHWCC 08:15 | PROVIDERS: ATTEND Preventive Medicine Undersea and Hyperbaric Medicine | DX: E11.621 Type 2 diabetes mellitus with foot ulcer (principal); L97.416 Non-pressure chronic ulcer of right heel and midfoot with bone involvement without evidence of necrosis; R60.0 Localized edema | CPT/HCPCS: 36416 ==

== ENCOUNTER 2022-02-05 10:32 | Outpatient (CLI) | payer MEDICARE | END 2022-02-05 10:33 | disposition home or self-care (01) | LOC: CSHWCC 10:32 | PROVIDERS: ATTEND Preventive Medicine Undersea and Hyperbaric Medicine | DX: E11.621 Type 2 diabetes mellitus with foot ulcer (principal); L97.416 Non-pressure chronic ulcer of right heel and midfoot with bone involvement without evidence of necrosis; M86.671 Other chronic osteomyelitis, right ankle and foot; I10 Essential (primary) hypertension ==

== ENCOUNTER 2022-02-08 08:11 | Outpatient (CLI) | payer MEDICARE | END 2022-02-08 08:12 | disposition home or self-care (01) | LOC: CSHWCC 08:11 | PROVIDERS: ATTEND Preventive Medicine Undersea and Hyperbaric Medicine | DX: E11.621 Type 2 diabetes mellitus with foot ulcer (principal); L97.416 Non-pressure chronic ulcer of right heel and midfoot with bone involvement without evidence of necrosis; R60.0 Localized edema | CPT/HCPCS: 36416; G0277 ==

== ENCOUNTER 2022-02-09 08:21 | Outpatient (CLI) | payer MEDICARE | END 2022-02-09 08:22 | disposition home or self-care (01) | LOC: CSHWCC 08:21 | PROVIDERS: ATTEND Preventive Medicine Undersea and Hyperbaric Medicine | DX: E11.621 Type 2 diabetes mellitus with foot ulcer (principal); L97.416 Non-pressure chronic ulcer of right heel and midfoot with bone involvement without evidence of necrosis; R60.0 Localized edema | CPT/HCPCS: 36416; G0277 ==

== ENCOUNTER 2022-02-10 08:01 | Outpatient (CLI) | payer MEDICARE | END 2022-02-10 08:02 | disposition home or self-care (01) | LOC: CSHWCC 08:01 | PROVIDERS: ATTEND Preventive Medicine Undersea and Hyperbaric Medicine | DX: E11.621 Type 2 diabetes mellitus with foot ulcer (principal); L97.416 Non-pressure chronic ulcer of right heel and midfoot with bone involvement without evidence of necrosis; R60.0 Localized edema | CPT/HCPCS: 36416 ==

== ENCOUNTER 2022-02-19 09:56 | Outpatient (CLI) | payer MEDICARE | END 2022-02-19 09:57 | disposition home or self-care (01) | LOC: CSHWCC 09:56 | PROVIDERS: ATTEND Nurse Practitioner Family | DX: E11.621 Type 2 diabetes mellitus with foot ulcer (principal); L97.416 Non-pressure chronic ulcer of right heel and midfoot with bone involvement without evidence of necrosis; R60.0 Localized edema | CPT/HCPCS: 99213; G0463 ==

== ENCOUNTER 2022-02-26 11:03 | Outpatient (CLI) | payer MEDICARE | END 2022-02-26 11:04 | disposition home or self-care (01) | LOC: CSHWCC 11:03 | PROVIDERS: ATTEND Nurse Practitioner Family | DX: E11.621 Type 2 diabetes mellitus with foot ulcer (principal); L97.416 Non-pressure chronic ulcer of right heel and midfoot with bone involvement without evidence of necrosis; R60.0 Localized edema ==

== ENCOUNTER 2022-03-12 11:30 | Outpatient (CLI) | payer MEDICARE | END 2022-03-12 11:31 | disposition home or self-care (01) | LOC: CSHWCC 11:30 | PROVIDERS: ATTEND Nurse Practitioner Family | DX: E11.621 Type 2 diabetes mellitus with foot ulcer (principal); L97.416 Non-pressure chronic ulcer of right heel and midfoot with bone involvement without evidence of necrosis; R60.0 Localized edema | CPT/HCPCS: 29445; 29581; 36416 ==

== ENCOUNTER 2022-03-29 13:11 | Outpatient (CLI) | payer MEDICARE | END 2022-03-29 13:12 | disposition home or self-care (01) | LOC: CSHWCC 13:11 | PROVIDERS: ATTEND Nurse Practitioner Family | DX: E11.621 Type 2 diabetes mellitus with foot ulcer (principal); L97.416 Non-pressure chronic ulcer of right heel and midfoot with bone involvement without evidence of necrosis; R60.0 Localized edema | CPT/HCPCS: 29445; 29581; 36416 ==

== ENCOUNTER 2022-04-05 14:29 | Outpatient (CLI) | payer MEDICARE | END 2022-04-05 14:30 | disposition home or self-care (01) | LOC: CSHWCC 14:29 | PROVIDERS: ATTEND Nurse Practitioner Family | DX: E11.621 Type 2 diabetes mellitus with foot ulcer (principal); L97.416 Non-pressure chronic ulcer of right heel and midfoot with bone involvement without evidence of necrosis; R60.0 Localized edema ==

== ENCOUNTER 2022-04-13 10:48 | Outpatient (CLI) | payer MEDICARE | END 2022-04-13 10:49 | disposition home or self-care (01) | LOC: CSHWCC 10:48 | PROVIDERS: ATTEND Nurse Practitioner Family | DX: E11.621 Type 2 diabetes mellitus with foot ulcer (principal); L97.416 Non-pressure chronic ulcer of right heel and midfoot with bone involvement without evidence of necrosis; R60.0 Localized edema | CPT/HCPCS: 29445 ==

== ENCOUNTER 2022-04-20 10:36 | Outpatient (CLI) | payer MEDICARE | END 2022-04-20 10:37 | disposition home or self-care (01) | LOC: CSHWCC 10:36 | PROVIDERS: ATTEND Nurse Practitioner Family | DX: E11.621 Type 2 diabetes mellitus with foot ulcer (principal); L97.416 Non-pressure chronic ulcer of right heel and midfoot with bone involvement without evidence of necrosis; R60.0 Localized edema | CPT/HCPCS: 36416 ==

== ENCOUNTER 2022-04-28 14:04 | Outpatient (CLI) | payer MEDICARE | END 2022-04-28 14:05 | disposition home or self-care (01) | LOC: CSHWCC 14:04 | PROVIDERS: ATTEND Nurse Practitioner Family | DX: E11.621 Type 2 diabetes mellitus with foot ulcer (principal); L97.416 Non-pressure chronic ulcer of right heel and midfoot with bone involvement without evidence of necrosis; R60.0 Localized edema | CPT/HCPCS: 29445 ==

== ENCOUNTER 2022-05-05 09:59 | Outpatient (CLI) | payer MEDICARE | END 2022-05-05 10:00 | disposition home or self-care (01) | LOC: CSHWCC 09:59 | PROVIDERS: ATTEND Nurse Practitioner Family | DX: E11.621 Type 2 diabetes mellitus with foot ulcer (principal); L97.416 Non-pressure chronic ulcer of right heel and midfoot with bone involvement without evidence of necrosis; R60.0 Localized edema | CPT/HCPCS: 99213; G0463 ==

== ENCOUNTER 2022-05-13 09:59 | Outpatient (CLI) | payer MEDICARE | END 2022-05-13 10:00 | disposition home or self-care (01) | LOC: CSHWCC 09:59 | PROVIDERS: ATTEND Nurse Practitioner Family | DX: E11.621 Type 2 diabetes mellitus with foot ulcer (principal); L97.416 Non-pressure chronic ulcer of right heel and midfoot with bone involvement without evidence of necrosis; R60.0 Localized edema | CPT/HCPCS: 29445 ==

== ENCOUNTER 2022-05-20 09:20 | Outpatient (CLI) | payer MEDICARE | END 2022-05-20 09:21 | disposition home or self-care (01) | LOC: CSHWCC 09:20 | PROVIDERS: ATTEND Nurse Practitioner Family | DX: E11.621 Type 2 diabetes mellitus with foot ulcer (principal); L97.416 Non-pressure chronic ulcer of right heel and midfoot with bone involvement without evidence of necrosis; R60.0 Localized edema ==

== ENCOUNTER 2022-05-27 10:46 | Outpatient (CLI) | payer MEDICARE | END 2022-05-27 10:47 | disposition home or self-care (01) | LOC: CSHWCC 10:46 | PROVIDERS: ATTEND Nurse Practitioner Family | DX: E11.621 Type 2 diabetes mellitus with foot ulcer (principal); L97.416 Non-pressure chronic ulcer of right heel and midfoot with bone involvement without evidence of necrosis; R60.0 Localized edema ==

== ENCOUNTER 2022-06-02 11:16 | Outpatient (CLI) | payer MEDICARE | END 2022-06-02 11:17 | disposition home or self-care (01) | LOC: CSHWCC 11:16 | PROVIDERS: ATTEND Nurse Practitioner Family | DX: E11.621 Type 2 diabetes mellitus with foot ulcer (principal); L97.416 Non-pressure chronic ulcer of right heel and midfoot with bone involvement without evidence of necrosis; R60.0 Localized edema ==

== ENCOUNTER 2022-06-09 09:15 | Outpatient (CLI) | payer MEDICARE | END 2022-06-09 09:16 | disposition home or self-care (01) | LOC: CSHWCC 09:15 → EDSTATUS 14:48 | PROVIDERS: ATTEND Nurse Practitioner Family | DX: E11.621 Type 2 diabetes mellitus with foot ulcer (principal); L97.416 Non-pressure chronic ulcer of right heel and midfoot with bone involvement without evidence of necrosis; R60.0 Localized edema ==

== ENCOUNTER 2022-06-23 10:39 | Outpatient (CLI) | payer MEDICARE | END 2022-06-23 10:40 | disposition home or self-care (01) | LOC: CSHWCC 10:39 | PROVIDERS: ATTEND Nurse Practitioner Family | DX: E11.621 Type 2 diabetes mellitus with foot ulcer (principal); L97.416 Non-pressure chronic ulcer of right heel and midfoot with bone involvement without evidence of necrosis; R60.0 Localized edema | CPT/HCPCS: 99213; G0463 ==

== ENCOUNTER 2022-07-07 10:30 | Outpatient (CLI) | payer MEDICARE | END 2022-07-07 10:31 | disposition home or self-care (01) | LOC: CSHWCC 10:30 | PROVIDERS: ATTEND Nurse Practitioner Family | DX: E11.621 Type 2 diabetes mellitus with foot ulcer (principal); L97.416 Non-pressure chronic ulcer of right heel and midfoot with bone involvement without evidence of necrosis; R60.0 Localized edema | CPT/HCPCS: 97139; G0463; 99213 ==

== ENCOUNTER 2022-07-20 14:20 | Outpatient (CLI) | payer MEDICARE | END 2022-07-20 14:21 | disposition home or self-care (01) | LOC: CSHWCC 14:20 | PROVIDERS: ATTEND Nurse Practitioner Family | DX: E11.621 Type 2 diabetes mellitus with foot ulcer (principal); L97.416 Non-pressure chronic ulcer of right heel and midfoot with bone involvement without evidence of necrosis; R60.0 Localized edema ==

== ENCOUNTER 2022-08-03 11:00 | Outpatient (CLI) | payer MEDICARE | END 2022-08-03 11:01 | disposition home or self-care (01) | LOC: CSHWCC 11:00 | PROVIDERS: ATTEND Nurse Practitioner Family | DX: E11.621 Type 2 diabetes mellitus with foot ulcer (principal); L97.416 Non-pressure chronic ulcer of right heel and midfoot with bone involvement without evidence of necrosis; R60.0 Localized edema ==

== ENCOUNTER 2022-08-17 11:00 | Outpatient (CLI) | payer MEDICARE | END 2022-08-17 11:01 | disposition home or self-care (01) | LOC: CSHWCC 11:00 | PROVIDERS: ATTEND Nurse Practitioner Family | DX: E11.621 Type 2 diabetes mellitus with foot ulcer (principal); L97.416 Non-pressure chronic ulcer of right heel and midfoot with bone involvement without evidence of necrosis; R60.0 Localized edema | CPT/HCPCS: 11042 ==

== ENCOUNTER 2022-08-31 11:05 | Outpatient (CLI) | payer MEDICARE | END 2022-08-31 11:06 | disposition home or self-care (01) | LOC: CSHWCC 11:05 | PROVIDERS: ATTEND Nurse Practitioner Family | DX: E11.621 Type 2 diabetes mellitus with foot ulcer (principal); L97.416 Non-pressure chronic ulcer of right heel and midfoot with bone involvement without evidence of necrosis; R60.1 Generalized edema ==

== ENCOUNTER 2022-10-06 10:59 | Outpatient (CLI) | payer MEDICARE | END 2022-10-06 11:00 | disposition home or self-care (01) | LOC: CSHWCC 10:59 | PROVIDERS: ATTEND Nurse Practitioner Family | DX: E11.621 Type 2 diabetes mellitus with foot ulcer (principal); L97.416 Non-pressure chronic ulcer of right heel and midfoot with bone involvement without evidence of necrosis | CPT/HCPCS: 97139; G0463; 99212 ==

== ENCOUNTER 2022-10-27 11:25 | Outpatient (CLI) | payer MEDICARE | END 2022-10-27 11:26 | disposition home or self-care (01) | LOC: CSHWCC 11:25 | PROVIDERS: ATTEND Nurse Practitioner Family | DX: E11.621 Type 2 diabetes mellitus with foot ulcer (principal); L97.416 Non-pressure chronic ulcer of right heel and midfoot with bone involvement without evidence of necrosis | CPT/HCPCS: 97139; G0463; 99212 ==

== ENCOUNTER 2023-04-11 13:24 | Outpatient (CLI) | payer MEDICARE | END 2023-04-11 13:25 | disposition home or self-care (01) | LOC: CSHWCC 13:24 | PROVIDERS: ATTEND Physician Assistant | DX: L89.623 Pressure ulcer of left heel, stage 3 (principal) | CPT/HCPCS: 97597; G0463; 99213 ==

== ENCOUNTER 2023-05-03 15:01 | Outpatient (CLI) | payer MEDICARE | END 2023-05-03 15:02 | disposition home or self-care (01) | LOC: CSHWCC 15:01 | PROVIDERS: ATTEND Preventive Medicine Undersea and Hyperbaric Medicine | DX: L89.623 Pressure ulcer of left heel, stage 3 (principal); E11.65 Type 2 diabetes mellitus with hyperglycemia | CPT/HCPCS: 11042 ==

== ENCOUNTER 2023-05-10 13:56 | Outpatient (CLI) | payer MEDICARE | END 2023-05-10 13:57 | disposition home or self-care (01) | LOC: CSHWCC 13:56 | PROVIDERS: ATTEND Preventive Medicine Undersea and Hyperbaric Medicine | DX: L89.623 Pressure ulcer of left heel, stage 3 (principal); E11.65 Type 2 diabetes mellitus with hyperglycemia ==

== ENCOUNTER 2023-05-13 13:56 | Outpatient (CLI) | payer MEDICARE | END 2023-05-13 13:57 | disposition home or self-care (01) | LOC: CSHWCC 13:56 | PROVIDERS: ATTEND Preventive Medicine Undersea and Hyperbaric Medicine | DX: L89.623 Pressure ulcer of left heel, stage 3 (principal); E11.65 Type 2 diabetes mellitus with hyperglycemia | CPT/HCPCS: 97597 ==

== ENCOUNTER 2023-05-17 14:48 | Outpatient (CLI) | payer MEDICARE | END 2023-05-17 14:49 | disposition home or self-care (01) | LOC: CSHWCC 14:48 | PROVIDERS: ATTEND Physician Assistant | DX: E11.65 Type 2 diabetes mellitus with hyperglycemia (principal); L89.623 Pressure ulcer of left heel, stage 3; E66.01 Morbid (severe) obesity due to excess calories | CPT/HCPCS: 11042 ==

== ENCOUNTER 2023-05-20 11:50 | Outpatient (CLI) | payer MEDICARE | END 2023-05-20 11:51 | disposition home or self-care (01) | LOC: CSHWCC 11:50 | PROVIDERS: ATTEND Physician Assistant | DX: E11.622 Type 2 diabetes mellitus with other skin ulcer (principal); L89.623 Pressure ulcer of left heel, stage 3; E11.65 Type 2 diabetes mellitus with hyperglycemia; E66.01 Morbid (severe) obesity due to excess calories | CPT/HCPCS: 29445 ==

== ENCOUNTER 2023-05-27 12:30 | Outpatient (CLI) | payer MEDICARE | END 2023-05-27 12:31 | disposition home or self-care (01) | LOC: CSHWCC 12:30 | PROVIDERS: ATTEND Nurse Practitioner Family | DX: E11.621 Type 2 diabetes mellitus with foot ulcer (principal); L89.623 Pressure ulcer of left heel, stage 3; E11.65 Type 2 diabetes mellitus with hyperglycemia; E66.01 Morbid (severe) obesity due to excess calories | CPT/HCPCS: 11042 ==

== ENCOUNTER 2023-06-03 12:59 | Outpatient (CLI) | payer MEDICARE | END 2023-06-03 13:00 | disposition home or self-care (01) | LOC: CSHWCC 12:59 | PROVIDERS: ATTEND Nurse Practitioner Family | DX: L89.623 Pressure ulcer of left heel, stage 3 (principal); E11.65 Type 2 diabetes mellitus with hyperglycemia; E66.01 Morbid (severe) obesity due to excess calories | CPT/HCPCS: 11042 ==

== ENCOUNTER 2023-06-08 13:39 | Outpatient (CLI) | payer MEDICARE | END 2023-06-08 13:40 | disposition home or self-care (01) | LOC: CSHWCC 13:39 | PROVIDERS: ATTEND Nurse Practitioner Family | DX: L89.623 Pressure ulcer of left heel, stage 3 (principal); E11.65 Type 2 diabetes mellitus with hyperglycemia; E66.01 Morbid (severe) obesity due to excess calories | CPT/HCPCS: 11042 ==

== ENCOUNTER 2023-06-15 13:23 | Outpatient (CLI) | payer MEDICARE | END 2023-06-15 13:24 | disposition home or self-care (01) | LOC: CSHWCC 13:23 | PROVIDERS: ATTEND Nurse Practitioner Family | DX: E11.621 Type 2 diabetes mellitus with foot ulcer (principal); L97.512 Non-pressure chronic ulcer of other part of right foot with fat layer exposed; E11.65 Type 2 diabetes mellitus with hyperglycemia; E66.01 Morbid (severe) obesity due to excess calories | CPT/HCPCS: 11042 ==

== ENCOUNTER 2023-06-22 15:17 | Outpatient (CLI) | payer MEDICARE | END 2023-06-22 15:18 | disposition home or self-care (01) | LOC: CSHWCC 15:17 | PROVIDERS: ATTEND Nurse Practitioner Family | DX: E11.621 Type 2 diabetes mellitus with foot ulcer (principal); L97.512 Non-pressure chronic ulcer of other part of right foot with fat layer exposed; E11.65 Type 2 diabetes mellitus with hyperglycemia; E66.01 Morbid (severe) obesity due to excess calories | CPT/HCPCS: 99213; G0463 ==